=== PATIENT | male | born 1960 | race Caucasian/White ===

== ENCOUNTER → 2020-08-30 | Outpatient (CLI) | payer BC ==
[~2020-08-30] MED LIST: AMLO-150 PO; ATOR40TA78 PO; ETAN50DI2 INJ; LOSA100T14 PO; MELO15TA24 PO; PANT40TA6 PO; PRED2.5T PO
[2020-08-30 11:39] LABS: ALANINE AMINOTRANSFERASE 24 U/L (12-78); ALBUMIN 4.2 g/dL (3.4-5.0); ANION GAP 4 mmol/L (5-15); CALCIUM 9.1 mg/dL (8.5-10.1); CHLORIDE 110 mmol/L (98-107); CREATININE 1.05 mg/dL (0.7-1.3)
[2020-08-30 11:41] LABS: ALKALINE PHOSPHATASE 62 U/L (45-117); BILIRUBIN,TOTAL 2.5 mg/dL (0.2-1.0); TOTAL PROTEIN 7.1 g/dL (6.4-8.2)
== END | disposition home or self-care (01) ==
LOC: STAR 10:18
PROVIDERS: ATTEND Surgery
DX: Z01.812 Encounter for preprocedural laboratory examination (principal); Z20.822 Contact with and (suspected) exposure to COVID-19
CPT/HCPCS: 36415; 80053; U0003